=== PATIENT | female | born 1970 | race Caucasian/White ===

== ENCOUNTER 2020-04-01 06:24 | Day surgery (SDC) | payer BC ==
[~2020-04-01 06:24] MED LIST: ALLEGRA ALLERG180 MG PO; IMITREX100 MG PO; KENALOG CREAM 080 GM TOP; TOPAMAX50 MG PO; WELLBUTRIN XL150 MG PO
[2020-04-01 15:12] LABS: HEMOGLOBIN 14.5 gm/dl (12.3-15.3)
[2020-04-02] MEDS ORDERED: NAPROXEN500 MG PO (10:28)
[2020-04-02] MEDS ORDERED: COLACE100 MG PO (10:29)
[2020-04-02] MEDS ORDERED: OXYCODONE HCL5 MG PO (10:29)
== END 2020-04-02 11:38 | disposition home or self-care (01) ==
LOC: OR 06:24 → OB 16:59 → OR 04-02 11:38
PROVIDERS: Obstetrics & Gynecology
PROC: 0UT94ZZ Resection of Uterus, Percutaneous Endoscopic Approach (ICD-10-PCS; principal; 2020-04-02)
PROC: 0UT24ZZ Resection of Bilateral Ovaries, Percutaneous Endoscopic Approach (ICD-10-PCS; 2020-04-02)
PROC: 0UT74ZZ Resection of Bilateral Fallopian Tubes, Percutaneous Endoscopic Approach (ICD-10-PCS; 2020-04-02)
DX: D25.1 Intramural leiomyoma of uterus (principal); N80.0 Endometriosis of uterus; N72 Inflammatory disease of cervix uteri; N94.6 Dysmenorrhea, unspecified; N93.9 Abnormal uterine and vaginal bleeding, unspecified; G43.909 Migraine, unspecified, not intractable, without status migrainosus; Z79.899 Other long term (current) drug therapy; Z20.828 Contact with and (suspected) exposure to other viral communicable diseases
CPT/HCPCS: 84703; 85014; 85018; J0690; J1100; J1170; J1885; J2001; J2250; J2370; J2405; J2704; J2710; J2765; J2795; J3010; J7120